=== PATIENT | male | born 1995 | race Caucasian/White ===

== ENCOUNTER 2018-05-08 02:44 | Emergency (ER) | payer SELFPAY ==
[2018-05-08 02:55] VITALS: BP 158/109; PULSE 90; RESP 20; TEMP 36.8; O2SAT 100; BMI 19.0
--- NOTE | 2018-05-08 03:01 | DI.RAD.S_ITS ---
PROCEDURE: XR CHEST 1V INDICATIONS: pain short of breath TECHNIQUE: One view of the chest was acquired. COMPARISON: None. FINDINGS: Surgical changes and devices: None. Lungs and pleura: No pleural effusions or pneumothorax. Lungs are clear. Mediastinum: Mediastinal contours appear normal. Heart size is normal. Bones and chest wall: No suspicious bony lesions. Overlying soft tissues appear unremarkable. IMPRESSION: No acute cardiopulmonary pathology. Dictated by: Rodolfo Lyle M.D. on 05/08/2018 at 10:00 Approved by: Rodolfo Lyle M.D. on 05/08/2018 at 10:01
--- NOTE | 2018-05-08 03:02 | ED_ITS ---
HPI - Chest Pain General Chief Complaint: Chest Pain Stated Complaint: CHEST PAIN X1 DAY Time Seen by Provider: 05/08/18 02:57 Source: patient Mode of arrival: ambulatory Limitations: no limitations History of Present Illness HPI narrative: patient is a 23-year-old male presents with chest pain. It started this evening. Feels like burning in the middle of his chest. He does smoke cigarettes marijuana and admits to using methamphetamine this evening. He denies any shortness of breath no fevers no cough. It hurts whenever he breathes Describes it as burning MD complaint: chest pain Related Data Allergies Allergy/AdvReac Type Severity Reaction Status Date / Time No Known Drug Allergies Allergy Verified 05/08/18 02:59 Review of Systems Review of Systems GENERAL: Denies chills, fatigue, malaise, fever, sweats, travel HEENT: Denies sinus pain, ear pain, sore throat, difficulty swallowing, neck pain RESPIRATORY: Denies dyspnea, cough, wheezing, hemoptysis, sputum. CARDIOVASCULAR: See HPI GASTROINTESTINAL: Denies nausea, vomiting, abdominal pain, diarrhea, constipation, melena. : Denies dysuria, frequency, incontinence, hematuria, urinary retention, flank pain. MUSCULOSKELETAL: Denies weakness, joint pain, or bony pain SKIN: No rash, no erythema, no pruritus NEUROLOGIC: Denies weakness, dizziness, headache, numbness, change in speech, confusion PSYCHIATRIC: No concerning psychosocial issues. 12 point review of systems is negative except for those stated above and HPI [facility] Social History Smoking Status: Current every day smoker Exam Initial Vital Signs Initial Vital Signs: Vital Signs Temperature 98.2 F 05/08/18 02:55 Pulse Rate 90 05/08/18 02:55 Respiratory Rate 20 05/08/18 02:55 Blood Pressure 158/109 H 05/08/18 02:55 Pulse Oximetry 100 05/08/18 02:55 GENERAL: in male alert and oriented slightly anxious HEENT: Head atraumatic,EOMI, pupils reactive, CARDIOVASCULAR: Regular rate and rhythm without murmurs, rubs or gallops. RESPIRATORY: Breath sounds clear bilaterally with no wheezing rales or rhonchi. Slightly diminished on the right ABDOMEN: Soft, nontender. Normoactive bowel sounds all 4 quadrants. No guarding or rebound. EXTREMITIES: Normal range of motion, no clubbing or edema. Neurovascularly intact NEUROLOGICAL: Alert and oriented x4.Normal gait and speech. SKIN: Warm, dry, no laceration, no petechiae, no rashes or lesions. Course Orders Ordered: ED Orders 05/08/18 EKG-12 Lead Routine 05/08/18 03:01 XR chest 1V Stat Discontinued Medications Acetaminophen (Tylenol) 975 mg PO NOW ONE Stop: 05/08/18 03:57 Last Admin: 05/08/18 03:59 Dose: 975 mg Albuterol/Ipratropium (Duoneb) 3 ml INH NOW ONE Stop: 05/08/18 03:02 Last Admin: 05/08/18 03:25 Dose: 3 ml Al Hydrox/Mg Hydrox/Simethicone 20 ml/ Lidocaine HCl 15 ml 0 ml PO NOW ONE Stop: 05/08/18 03:18 Last Admin: 05/08/18 03:28 Dose: 15 ml Ketorolac Tromethamine (Toradol) 60 mg IM NOW ONE Stop: 05/08/18 03:34 Last Admin: 05/08/18 03:38 Dose: 60 mg Vital Signs - 8 hr 05/08/18 02:55 05/08/18 03:35 05/08/18 04:00 Temperature 98.2 F Pulse Rate 90 121 H 89 Respiratory Rate 20 20 19 Blood Pressure 158/109 H Blood Pressure [Left Arm] 142/86 H 124/86 Pulse Oximetry 100 100 100 05/08/18 05:15 Temperature Pulse Rate 79 Respiratory Rate 17 Blood Pressure 131/77 Blood Pressure [Left Arm] Pulse Oximetry 100 MDM - Chest Pain Imaging Data Chest x-ray: Attestation: I personally reviewed and interpreted this imaging study as follows: My impression: no acute cardiopulmonary process ECG Data Attestation: I personally reviewed and interpreted this ECG as follows: Prior ECG tracings: not available for review Interpretation: normal sinus rhythm rate 66 here interval [address] changes normal intervals MDM Narrative Medical decision making narrative: bronchodilators patient says it actually hurt more will he was breathing in the medication. He still describes it as burning. He is given a GI cocktail which she did not have any relief from. Finally given Toradol and Tylenol currently says he is feeling better. Probable irritation is from inhalation of methamphetamine in other smoke. Discharge Plan Departure Patient Disposition: Home Clinical Impression: Atypical chest pain Discharge Date/Time: 01/20/19 05:17 Interventions: ED Discharge Assessment Last Done: 05/08/18 05:15 Instructions: DI for Atypical Chest Pain Activity Restrictions/Additional Instructions: *You have been diagnosed with Atypical chest pain *What to do: EKG and x-ray are reassuring *Continue to take medications as directed *Follow up with your primary care provider in 2-3 days *Return to ER if you should have increasing chest pain or shortness or any new, worsening or concerning symptoms
[2018-05-08] MEDS: ALBUTEROL/IPRATROPIUM 3 ML AMPUL INH (03:25)
[2018-05-08] MEDS: MAG HYDROX/ALUMINUM/SIMETH SUS 20 ML, LIDOCAINE VISCOUS 2% 15 ML PO (03:28)
[2018-05-08 03:35] VITALS: BP 142/86; PULSE 121; RESP 20; O2SAT 100
[2018-05-08] MEDS: KETOROLAC 60 MG/2 ML VIAL IM (03:38)
--- NOTE | 2018-05-08 03:45 | PC.NURSE ---
Pt reported increasing chest pain. No relief from GI cocktail. ST on monitor, 114. BP's approx equal bilat and stable. Upon further questioning, pt reported that he had used methamphetamine this evening. Dr. Hwang notified, order received for IM toradol. Pt medicated, given cool cloth for forehead, lights dimmed for comfort. Will monitor.
[2018-05-08] MEDS: ACETAMINOPHEN 325 MG TABLET 975 MG PO (03:59)
[2018-05-08 04:00] VITALS: BP 124/86; PULSE 89; RESP 19; O2SAT 100
[2018-05-08 05:15] VITALS: BP 131/77; PULSE 79; RESP 17; O2SAT 100
== END 2018-05-08 05:17 | disposition home or self-care (01) ==
PROVIDERS: Emergency Provider Emergency Medicine
DX: R07.89 Other chest pain (principal)
CPT/HCPCS: 71045; 93005; 93010; 93041; 99283; 99284; J1885